=== PATIENT | female | born 1955 | race Caucasian/White ===

== ENCOUNTER 2018-03-08 04:30 | Inpatient (IN) | payer MEDICARE, OTHER ==
[2018-03-08] MEDS ORDERED: SODIUM CHLORIDE 0.9% 1,000 ML IV STA (04:34)
[2018-03-08] MEDS ORDERED: NALOXONE 0.4 MG/ML 1 ML VIAL IV STA (04:34)
[2018-03-08 04:51] LABS: Basophils # (A) 0.1 k/uL (0-0.2); Basophils % (A) 2 %; Eosinophils # (A) 0.1 k/uL (0-0.7); Eosinophils % (A) 2 %; HGB 10.9 gm/dL (11.4-16.0); Lymphocytes # (A) 1.7 k/uL (1.0-4.8); Lymphocytes % (A) 43 %; MCH 34.1 pg (25.0-35.0); MCHC 33.1 g/dL (31.0-37.0); Macrocytosis Slight; Mean Platelet Volume 7.1; Monocytes # (A) 0.3 k/uL (0-1.0); Monocytes % (A) 7 %; Neutrophils # (A) 1.7 k/uL (1.3-7.7); Neutrophils % (A) 43 %; Platelet Count 278 k/uL (150-450); RBC 3.21 m/uL (3.80-5.40); RDW 12.9 % (11.5-15.5); WBC 3.9 k/uL (3.8-10.6)
[2018-03-08] MEDS ORDERED: LORazepam 2 MG/ML INJ IV STA (04:51)
[2018-03-08 04:58] LABS: ALT 42 U/L (9-52); AST 27 U/L (14-36); Alkaline Phosphatase 50 U/L (38-126); Anion Gap 4 mmol/L; Blood Urea Nitrogen 20 mg/dL (7-17); Calcium 8.2 mg/dL (8.4-10.2); Carbon Dioxide 31 mmol/L (22-30); Chloride 98 mmol/L (98-107); Glucose 92 mg/dL (74-99); Magnesium 1.9 mg/dL (1.6-2.3); Potassium 4.3 mmol/L (3.5-5.1); Sodium 133 mmol/L (137-145); Total Bilirubin 0.2 mg/dL (0.2-1.3); Total Protein 5.4 g/dL (6.3-8.2)
[2018-03-08 05:00] LABS: Partial Thromboplastin Time 24.3 sec (22.0-30.0); Prothrombin Time 10.1 sec (9.0-12.0)
[2018-03-08 05:06] LABS: Creatine Kinase 61 U/L (30-135)
[2018-03-08] MEDS ORDERED: SODIUM CHLORIDE 0.9% 500 ML IV ONE (05:18)
[2018-03-08 05:19] LABS: Creatine Kinase MB 0.9 ng/mL (0.0-2.4); Troponin I <0.012 ng/mL (0.000-0.034)
--- NOTE | 2018-03-08 06:05 | CT ---
EXAM: CT Head Without Intravenous Contrast CLINICAL HISTORY: Reason: Pain TECHNIQUE: Axial computed tomography images of the head/brain without intravenous contrast. CTDI is 60.3 mGy and DLP is 1054.2 mGy-cm. This CT exam was performed using one or more of the following dose reduction techniques: automated exposure control, adjustment of the mA and/or kV according to patient size, and/or use of iterative reconstruction technique. COMPARISON: No prior studies FINDINGS: No intracranial hemorrhage, abnormal intra- or extra-axial collections or parenchymal lesions are seen. There are involutional changes with prominence of the sulci, basal cisterns and ventricles. Scattered white matter hypoattenuations are present, likely from small vessel disease. The bejarano-white differentiation is preserved. No evidence of mass effect, midline shift, or edema. The osseous structures are unremarkable. The visualized portions of the paranasal sinuses are clear. IMPRESSION: 1. No acute intracranial process. 2. Involutional changes with small vessel disease.
--- NOTE | 2018-03-08 06:07 | XR ---
EXAM: XR Chest, 1 View CLINICAL HISTORY: Its. reason XR Reason: Chest Pain TECHNIQUE: Frontal view of the chest. COMPARISON: No relevant prior studies available. FINDINGS: Bibasilar infiltrates greater on the right. Prominence of pulmonary vascular markings mild prominence of cardiac silhouette. IMPRESSION: Bibasilar infiltrates greater on the right. Although this could represent pulmonary venous congestion the possibility of infectious pneumonic infiltrates cannot be excluded
[2018-03-08] MEDS ORDERED: LEVOFLOXACIN 500MG-D5W PMX 500 MG in DEXTROSE/WATER 1 100ML.BAG IVPB STA (06:27)
--- NOTE | 2018-03-08 06:54 | ED ---
Overdose HPI - General Chief Complaint: Overdose Stated Complaint: overdose Time Seen by Provider: 03/08/18 04:33 Source: EMS Mode of arrival: EMS Limitations: no limitations - History of Present Illness Initial Comments: 62 years old for him female from mom her [facility] accidentally got some of the patient's medication that included Neurontin 400 mg morphine 60 mg ER Cymbalta 60 and cervical 50 mg that happened around 7:45 PM yesterday and initially she was hard to arouse but in ER. When she came in during moving from one bed to another bed he woke up she follow the commands. Review of system was inconclusive because she will in and out she will wake up and she'll fall sleep. - Related Data Allergies Allergy/AdvReac Type Severity Reaction Status Date / Time No Known Allergies Allergy Verified 03/08/18 04:49 Review of Systems ROS Statement: Those systems with pertinent positive or pertinent negative responses have been documented in the HPI. ROS Other: All systems not noted in ROS Statement are negative. Past Medical History Past Medical History: Unable to Obtain History of Any Multi-Drug Resistant Organisms: Unobtainable Past Surgical History: Unable to Obtain Past Psychological History: Unable to Obtain Smoking Status: Unknown if ever smoked Past Alcohol Use History: Unable to Obtain Past Drug Use History: Unable to Obtain General Exam Limitations: no limitations Course Vital Signs 03/08/18 03/08/18 03/08/18 04:32 04:51 04:57 Temperature 95.7 F L Pulse Rate 68 63 Respiratory 12 14 14 Rate Blood Pressure 159/69 120/85 O2 Sat by Pulse 95 97 Oximetry 03/08/18 03/08/18 03/08/18 05:19 05:36 06:06 Temperature Pulse Rate 57 L 56 L 58 L Respiratory 12 12 12 Rate Blood Pressure 92/50 143/74 100/56 O2 Sat by Pulse 92 L 96 93 L Oximetry EKG is normal sinus rhythm with PVCs ventricular rate is 62 MO interval is 134 QRS duration is 78 Qt/QTc is 448/454 review of this EKG does not reveal any clear STEMI - Reevaluation(s) Reevaluation #1: His blood gases showed pH 724 bicarb is 32.6 CBC is unremarkable so his INR troponin is within normal range so is the compress metabolic panel chest x-ray there is a question of bilateral pneumonia and head CT ruled out any subdural or epidural bleed 03/08/18 06:51 Medical Decision Making - Lab Data Result diagrams: 03/08/18 04:38 03/08/18 04:38 Lab Results 03/08/18 03/08/18 03/08/18 Range/Units 04:38 04:38 04:38 WBC 3.9 (3.8-10.6) k/uL RBC 3.21 L (3.80-5.40) m/uL Hgb 10.9 L (11.4-16.0) gm/dL Hct 33.0 L (34.0-46.0) % MCV 103.0 H (80.0-100.0) fL MCH 34.1 (25.0-35.0) pg MCHC 33.1 (31.0-37.0) g/dL RDW 12.9 (11.5-15.5) % Plt Count 278 (150-450) k/uL Neutrophils % 43 % Lymphocytes % 43 % Monocytes % 7 % Eosinophils % 2 % Basophils % 2 % Neutrophils # 1.7 (1.3-7.7) k/uL Lymphocytes # 1.7 (1.0-4.8) k/uL Monocytes # 0.3 (0-1.0) k/uL Eosinophils # 0.1 (0-0.7) k/uL Basophils # 0.1 (0-0.2) k/uL Macrocytosis Slight PT (9.0-12.0) sec INR (<1.2) APTT (22.0-30.0) sec Sodium 133 L (137-145) mmol/L Potassium 4.3 (3.5-5.1) mmol/L Chloride 98 (98-107) mmol/L Carbon Dioxide 31 H (22-30) mmol/L Anion Gap 4 mmol/L BUN 20 H (7-17) mg/dL Creatinine 0.70 (0.52-1.04) mg/dL Est GFR (CKD-EPI)AfAm >90 (>60 ml/min/1.73 sqM) Est GFR (CKD-EPI)NonAf >90 (>60 ml/min/1.73 sqM) Glucose 92 (74-99) mg/dL Calcium 8.2 L (8.4-10.2) mg/dL Magnesium 1.9 (1.6-2.3) mg/dL Total Bilirubin 0.2 (0.2-1.3) mg/dL AST 27 (14-36) U/L ALT 42 (9-52) U/L Alkaline Phosphatase 50 (38-126) U/L Total Creatine Kinase 61 (30-135) U/L CK-MB (CK-2) 0.9 (0.0-2.4) ng/mL CK-MB (CK-2) Rel Index 1.5 Troponin I <0.012 (0.000-0.034) ng/mL Total Protein 5.4 L (6.3-8.2) g/dL Albumin 3.0 L (3.5-5.0) g/dL 03/08/18 Range/Units 04:38 WBC (3.8-10.6) k/uL RBC (3.80-5.40) m/uL Hgb (11.4-16.0) gm/dL Hct (34.0-46.0) % MCV (80.0-100.0) fL MCH (25.0-35.0) pg MCHC (31.0-37.0) g/dL RDW (11.5-15.5) % Plt Count (150-450) k/uL Neutrophils % % Lymphocytes % % Monocytes % % Eosinophils % % Basophils % % Neutrophils # (1.3-7.7) k/uL Lymphocytes # (1.0-4.8) k/uL Monocytes # (0-1.0) k/uL Eosinophils # (0-0.7) k/uL Basophils # (0-0.2) k/uL Macrocytosis PT 10.1 (9.0-12.0) sec INR 1.0 (<1.2) APTT 24.3 (22.0-30.0) sec Sodium (137-145) mmol/L Potassium (3.5-5.1) mmol/L Chloride (98-107) mmol/L Carbon Dioxide (22-30) mmol/L Anion Gap mmol/L BUN (7-17) mg/dL Creatinine (0.52-1.04) mg/dL Est GFR (CKD-EPI)AfAm (>60 ml/min/1.73 sqM) Est GFR (CKD-EPI)NonAf (>60 ml/min/1.73 sqM) Glucose (74-99) mg/dL Calcium (8.4-10.2) mg/dL Magnesium (1.6-2.3) mg/dL Total Bilirubin (0.2-1.3) mg/dL AST (14-36) U/L ALT (9-52) U/L Alkaline Phosphatase (38-126) U/L Total Creatine Kinase (30-135) U/L CK-MB (CK-2) (0.0-2.4) ng/mL CK-MB (CK-2) Rel Index Troponin I (0.000-0.034) ng/mL Total Protein (6.3-8.2) g/dL Albumin (3.5-5.0) g/dL Critical Care Time Total Critical Care Time: 45 Critical Care Time: On arrival he was quite sleepy venous blood gases were within normal range she didn't require any respiratory support and initially she had a bradycardia but this soon after heart rate was above 60 she had morphine 60 mg ER Cymbalta 60 mg by mouth Seroquel 50 mg by mouth and Neurontin 4 mg this was ACCIDENTAL overdose she be admitted for observation with some IV antibiotics and IV fluids and chest x-ray showed some pneumonia. Nursing noticed a seizure which lasted about 15 seconds to a head CT was done Disposition Clinical Impression: Drug overdose, Change in mental status, Conversion disorder with attacks or seizures, acute episode, Pneumonia Disposition: ADMITTED IP TO THIS [facility] Condition: Good Referrals: None,Stated [Primary Care Provider] - 1-2 days
[2018-03-08] MEDS ORDERED: ACETAMINOPHEN TAB 325 MG TAB PO PRN (06:57)
[2018-03-08] MEDS ORDERED: NALOXONE 0.4 MG/ML 1 ML VIAL IV PRN (06:57)
[2018-03-08] MEDS ORDERED: DEXTROSE 5%-0.9% NACL 1,000 ML IV SCH (07:15)
[2018-03-08 09:08] LABS: Glucose,Whole Blood 94 mg/dL (75-99)
--- NOTE | 2018-03-08 17:21 | P.CNNES ---
History of Present Illness Consult date: 03/08/18 Reason for Consult: Patient with accidental drug overdose and seizure. History of Present Illness: This patient is a 62-year-old right-handed white female who was brought into the emergency room early this morning for evaluation of lethargy and possible drug overdose. Patient was examined and seen today in the emergency room in room #20 at [facility] as she was still awaiting a bed assignment. Patient was seen in the emergency room on 03/08/2018 at 4:30 PM. History was obtained from the patient's sister who was at bedside in the emergency room. Patient is awaiting bed assignment and was evaluated today in the emergency room at [facility] at about 4:30 PM. According to the sister she received a phone call yesterday evening at about 9 PM and was informed that the patient was given accidentally several medications. She was told that they were going to watch her closely and if necessary would transfer her to the hospital for further evaluation. The patient is residing at the [facility] since October 2017. According to the sister she attends [employer] days a week. She has been very functional even though she has a history of Down syndrome. This morning at 5 AM the sister received another call stating that the patient seemed to be more lethargic. They were calling EMS and she was going to go to the emergency room for further evaluation. According to her sister she had been doing quite well at the [facility] even though she has a history of underlying Down syndrome. She has been at the [facility] since October 2017 and apparently takes part in several activities. She is able to ambulate without the use of a walker at the home. Apparently yesterday evening the patient was accidentally given several medications including Neurontin, morphine, Cymbalta, and Seroquel which are not her usual medications. According to the sister the patient only takes a water pill and a thyroid medication as her only important medications at the [facility]. The patient apparently was evaluated this morning and she appeared to be more drowsy at the [facility]. For this reason EMS was called and the patient was transported to the emergency room at [facility] for further evaluation. Patient was seen in the emergency room by Dr. Garcia. He determined that she had a drug overdose. She was immediately given Narcan. It was determined that the patient had a drug overdose was likely accidental and for this reason she was to be admitted to the hospital for further evaluation. Dr. Garcia did send her for a computed tomography scan of the brain which did come back with no acute intracranial process. Small vessel ischemic changes were noted. The patient was given Narcan in the emergency room due to the drug overdose. Her sister had checked on early this morning and she was still somewhat obtunded. She was not recognizing her and she was hard to arouse early this morning. The patient was reevaluated this afternoon at about 4:30 PM and according to the sister she now seems to be doing much better and is more her normal baseline level of function given her history of the Down syndrome. We were able to evaluate the patient this afternoon at 4:30 PM in the emergency room. She is able to follow simple commands and does seem to recognize her sister who is at bedside. Apparently soon after coming to the emergency room the patient had a possible witnessed seizure by the nurse that lasted 15 seconds. She has had no further recurrence of any seizure activity since admission. According to the sister she has no previous history of seizures. The sister feels the patient has made progress this afternoon in terms of her mental status and is slowly coming around. She is going to be admitted to the hospital once her bed becomes available. We have reviewed the CAT scan results today with the sister in detail. The patient underwent a chest x-ray which reveals possibility of pneumonia. She was started on antibiotics and will be awaiting admission to the hospital for close monitoring. We will obtain a routine EEG for further evaluation as well. Patient is awaiting room assignment and will be admitted for close monitoring over the next 24-48 hours. Neurology is now been consulted for further evaluation and recommendations. Review of Systems Constitutional: Reports malaise, Denies chills, Denies fever Eyes: denies blurred vision, denies pain Ears, nose, mouth and throat: Denies headache, Denies sore throat Cardiovascular: Denies chest pain, Denies shortness of breath Respiratory: Denies cough Gastrointestinal: Denies abdominal pain, Denies diarrhea, Denies nausea, Denies vomiting Genitourinary: Denies dysuria, Denies hematuria Musculoskeletal: Denies myalgias Integumentary: Denies pruritus, Denies rash Neurological: Reports change in mentation, Reports confusion, Reports convulsions, Reports seizures, Denies numbness, Denies weakness Psychiatric: Reports confusion, Reports disorientation, Denies anxiety, Denies depression Endocrine: Denies fatigue, Denies weight change Past Medical History Past Medical History: Unable to Obtain History of Any Multi-Drug Resistant Organisms: Unobtainable Past Surgical History: Unable to Obtain Past Psychological History: Unable to Obtain Smoking Status: Unknown if ever smoked Past Alcohol Use History: Unable to Obtain Past Drug Use History: Unable to Obtain Medications and Allergies Home Medications Medication Instructions Recorded Confirmed Type Acetaminophen Tab [Tylenol Tab] 325 mg PO Q6H PRN 03/08/18 03/08/18 History Cholecalciferol (Vitamin D3) 2,000 unit PO DAILY 03/08/18 03/08/18 History [Vitamin D3] Ciclopirox Olamine Cream [Ciclodan] 1 applic TOPICAL BID 03/08/18 03/08/18 History DULoxetine HCL [Cymbalta] 60 mg PO HS 03/08/18 03/08/18 History Gabapentin [Neurontin] 400 mg PO HS 03/08/18 03/08/18 History Hydrochlorothiazide [Hydrodiuril] 25 mg PO DAILY 03/08/18 03/08/18 History Levothyroxine Sodium [Synthroid] 137 mcg PO DAILY 03/08/18 03/08/18 History Morphine Sulfate ER [Ms Contin] 60 mg PO HS 03/08/18 03/08/18 History Multivitamins, Thera [Multivitamin 1 tab PO DAILY 03/08/18 03/08/18 History (formulary)] QUEtiapine [SEROquel] 50 mg PO HS 03/08/18 03/08/18 History Allergies Allergy/AdvReac Type Severity Reaction Status Date / Time No Known Allergies Allergy Verified 03/08/18 11:12 Physical Examination - Vital Signs Vital Signs: Vital Signs Temp Pulse Pulse Resp BP Pulse Ox 03/08/18 14:49 98.1 F 74 18 104/58 03/08/18 12:59 18 L 03/08/18 12:57 98.3 F 72 18 99/48 94 L 03/08/18 11:46 98.3 F 69 18 97/52 95 03/08/18 08:58 97.6 F 67 18 93/53 95 03/08/18 07:39 96.9 F L 69 18 95/51 94 L 07/21/18 06:54 95.6 F L 62 12 145/67 97 03/08/18 06:06 58 L 12 100/56 93 L 03/08/18 05:36 56 L 12 143/74 96 03/08/18 05:19 57 L 12 92/50 92 L 03/08/18 04:57 63 14 120/85 97 03/08/18 04:51 14 03/08/18 04:32 95.7 F L 68 12 159/69 95 Intake and Output 03/08/18 03/08/18 03/08/18 06:59 14:59 22:59 Output Total 350 Balance -350 Output: Urine 350 Uretheral (Alonso) 350 Other: Weight 63.276 kg - Constitutional General appearance: average body habitus, cooperative - EENT EENT: PERRL, mucous membranes moist - Respiratory Respiratory: lungs clear, normal breath sounds - Cardiovascular Cardiovascular: regular rate, normal S1, normal S2 Extremities: no peripheral edema bilaterally - Gastrointestinal Gastrointestinal: normoactive bowel sounds - Integumentary Integumentary: normal - Neurologic Cranial nerve examination: PERRL, EOMI, face symmetric, tongue midline, intact gag reflex, intact corneal reflex, normal palatal elevation Speech examination: motor aphasia Sensorimotor examination: intact Motor examination - right side: 4/5: biceps, triceps, wrist flexion, wrist extension, cyber analyst, hip flexors, knee extensors, dorsiflexion, toe extension (EHL) , plantarflexion Motor examination - left side: 4/5: biceps, triceps, wrist flexion, wrist extension, cyber analyst, hip flexors, knee extensors, dorsiflexion, toe extension (EHL) , plantarflexion Detailed sensory examination: intact Reflex and gait examination: other (Patient gait could not be assessed at this time however she ambulates at the [facility] without the use of a walker.) Reflexes: 1+: ankle, bicep, knee, tricep - Musculoskeletal Musculoskeletal: no pain - Psychiatric Psychiatric: mood/affect appropriate, cooperative Results - Laboratory Findings CBC and BMP: 03/08/18 04:38 03/08/18 04:38 Abnormal Lab Findings: Abnormal Labs 03/08/18 03/08/18 04:38 04:38 RBC 3.21 L Hgb 10.9 L Hct 33.0 L MCV 103.0 H Sodium 133 L Carbon Dioxide 31 H BUN 20 H Calcium 8.2 L Total Protein 5.4 L Albumin 3.0 L Assessment and Plan (1) History of Down syndrome Current Visit: Yes Status: Acute Code(s): Q90.9 - DOWN SYNDROME, UNSPECIFIED SNOMED Code(s): 485603631 (2) Drug overdose Current Visit: Yes Status: Acute Code(s): T50.901A - POISONING BY UNSP DRUG/ MEDS/BIOL SUBST, ACCIDENTAL, INIT SNOMED Code(s): 49523264 (3) Acute metabolic encephalopathy Current Visit: Yes Status: Acute Code(s): G93.41 - METABOLIC ENCEPHALOPATHY SNOMED Code(s): 36913783 (4) New onset seizure Current Visit: Yes Status: Acute Code(s): R56.9 - UNSPECIFIED CONVULSIONS SNOMED Code(s): 06830784 (5) Pneumonia Current Visit: Yes Status: Acute Code(s): J18.9 - PNEUMONIA, UNSPECIFIED ORGANISM SNOMED Code(s): 393095393 Plan: This patient is a 62-year-old right-handed white female who has a known history of Down syndrome. She [facility] a [facility] where she has been very well adjusted there since October 2017. She is currently staying at the [facility] where she has been since October 2017. She attends the [employer] program 3 days a week. She ambulates at the home without the use of a walker. Her sister who provided the medical history today in the emergency room states she was contacted yesterday evening by the nursing staff at the [facility] and was told that the patient was accidentally given wrong medications. They were going to watch her closely and if any changes occurred they would send her to the emergency room. The sister received another call this morning at 5 AM stating that the patient was somewhat obtunded and for this reason was going to be sent by EMS to the emergency room this morning. He shouldn't was transported to the ER where she was evaluated at [facility] by a Dr. Garcia. It was determined that the patient had accidental drug overdose and she was given Narcan. She was sent for a computed tomography scan of the brain and the results of which are noted above. CAT scan of the brain failed to reveal any acute changes. Patient continued to remain somewhat obtunded in the ER until late this afternoon. Her assessment at 4:30 PM in the emergency room reveals her to be much more alert and awake as compared to initial presentation this morning. Her sister who is her power of family law attorney and guardian was available at bedside in the ER this afternoon also notes that she is shown significant improvement since initial presentation. The patient is being admitted to hospital and is going to be treated for possible pneumonia. She has been started on IV antibiotics. She had a 15 second seizure event possibly related to drug overdose when she presented to the ER. We have recommended a routine EEG to be done for further evaluation. Her sister who is at her bedside in the ER was updated on all of our neurological findings and test results thus far. She does feel the patient is making improvement this afternoon and we will continue to follow her neurologically during this admission. Patient has no previous history of seizures or head injury. We will continue to follow her closely when she is admitted to [facility] and receives her bed assignment. Once again this case was discussed at length with the patient's sister and all of her questions were answered. She is aware of our recommendations and our current neurological assessment. We will continue to follow her progress closely during this admission. Time with Patient: Greater than 30
--- NOTE | 2018-03-08 19:15 | P.HPIM ---
History of Present Illness 62 years old for him female from mom her long-term accidentally got some of the patient's medication that included Neurontin 400 mg morphine 60 mg ER Cymbalta 60 and cervical 50 mg that happened around 7:45 PM yesterday and initially she was hard to arouse but in ER. When she came in during moving from one bed to another bed he woke up she follow the commands. Review of system was inconclusive because she will in and out she will wake up and she'll fall sleep. Patient had a seizure apparently which no weakness to by the ER staff because of which are within obtain EEG. Patient is hyponatremic as well can you with IV fluids we'll recheck it tomorrow. Patient appears to have aspirated because of her poor dental hygiene start her on antibiotics in the form of Augmentin. Review of Systems Unable to obtain as patient is mostly nonverbal because of Down syndrome Past Medical History Past Medical History: Unable to Obtain History of Any Multi-Drug Resistant Organisms: Unobtainable Past Surgical History: Unable to Obtain Past Psychological History: Unable to Obtain Smoking Status: Unknown if ever smoked Past Alcohol Use History: Unable to Obtain Past Drug Use History: Unable to Obtain Medications and Allergies Home Medications Medication Instructions Recorded Confirmed Type Acetaminophen Tab [Tylenol Tab] 325 mg PO Q6H PRN 03/08/18 03/08/18 History Cholecalciferol (Vitamin D3) 2,000 unit PO DAILY 03/08/18 03/08/18 History [Vitamin D3] Ciclopirox Olamine Cream [Ciclodan] 1 applic TOPICAL BID 03/08/18 03/08/18 History DULoxetine HCL [Cymbalta] 60 mg PO HS 03/08/18 03/08/18 History Gabapentin [Neurontin] 400 mg PO HS 03/08/18 03/08/18 History Hydrochlorothiazide [Hydrodiuril] 25 mg PO DAILY 03/08/18 03/08/18 History Levothyroxine Sodium [Synthroid] 137 mcg PO DAILY 03/08/18 03/08/18 History Morphine Sulfate ER [Ms Contin] 60 mg PO HS 03/08/18 03/08/18 History Multivitamins, Thera [Multivitamin 1 tab PO DAILY 03/08/18 03/08/18 History (formulary)] QUEtiapine [SEROquel] 50 mg PO HS 03/08/18 03/08/18 History Allergies Allergy/AdvReac Type Severity Reaction Status Date / Time No Known Allergies Allergy Verified 03/08/18 11:12 Physical Exam Vitals: Vital Signs Temp Pulse Pulse Resp BP Pulse Ox 03/08/18 17:25 69 18 112/69 94 L 03/08/18 14:49 98.1 F 74 18 104/58 03/08/18 12:59 18 L 03/08/18 12:57 98.3 F 72 18 99/48 94 L 03/08/18 11:46 98.3 F 69 18 97/52 95 03/08/18 08:58 97.6 F 67 18 93/53 95 03/08/18 07:39 96.9 F L 69 18 95/51 94 L 03/08/18 06:54 95.6 F L 62 12 145/67 97 03/08/18 06:06 58 L 12 100/56 93 L 03/08/18 05:36 56 L 12 143/74 96 03/08/18 05:19 57 L 12 92/50 92 L 03/08/18 04:57 63 14 120/85 97 03/08/18 04:51 14 03/08/18 04:32 95.7 F L 68 12 159/69 95 Intake and Output 03/08/18 03/08/18 03/08/18 06:59 14:59 22:59 Output Total 350 Balance -350 Output: Urine 350 Uretheral (Alonso) 350 Other: Weight 63.276 kg PHYSICAL EXAMINATION: GENERAL: The patient is alert nonverbal very pleasant HEENT: Pupils are round and equally reacting to light. EOMI. No scleral icterus. No conjunctival pallor. Normocephalic, atraumatic. No pharyngeal erythema. No thyromegaly. CARDIOVASCULAR: S1 and S2 present. No murmurs, rubs, or gallops. PULMONARY: Chest is clear to auscultation, no wheezing or crackles. ABDOMEN: Soft, nontender, nondistended, normoactive bowel sounds. No palpable organomegaly. MUSCULOSKELETAL: No joint swelling or deformity. EXTREMITIES: No cyanosis, clubbing, or pedal edema. NEUROLOGICAL: Gross neurological examination did not reveal any focal deficits. SKIN: No rashes. Results CBC & Chem 7: 03/08/18 04:38 07/21/18 04:38 Labs: Abnormal Lab Results - Last 24 Hours (Table) 03/08/18 03/08/18 Range/Units 04:38 04:38 RBC 3.21 L (3.80-5.40) m/uL Hgb 10.9 L (11.4-16.0) gm/dL Hct 33.0 L (34.0-46.0) % MCV 103.0 H (80.0-100.0) fL Sodium 133 L (137-145) mmol/L Carbon Dioxide 31 H (22-30) mmol/L BUN 20 H (7-17) mg/dL Calcium 8.2 L (8.4-10.2) mg/dL Total Protein 5.4 L (6.3-8.2) g/dL Albumin 3.0 L (3.5-5.0) g/dL Microbiology - Last 24 Hours (Table) 03/08/18 06:55 Urine Culture - Preliminary Urine,Catheterized Assessment and Plan Plan: -Accidental overdose on multiple medications: Patient is clinically doing well will not need any further workup patient is awake at her baseline. -Possible seizure: Neurology evaluated the patient EEG tomorrow. -Hypothyroidism continue with levothyroxine -Possible aspiration secondary to her altered mental status from accidental overdose patient will be started on Augmentin -Hyponatremia: Hypovolemic hyponatremia IV fluids as mentioned will recheck basic metabolic profile -Toxic encephalopathy: Secondary to overdose on medications as mentioned above
[2018-03-08] MEDS ORDERED: LORazepam 2 MG/ML INJ IV PRN (22:43)
[2018-03-08] MEDS: AMOXIC-POT CLAV 875-125MG 1 EACH TAB PO SCH (22:52)
[2018-03-08] MEDS: SODIUM CHLORIDE 0.9% 1,000 ML IV SCH (22:54)
[2018-03-09 00:53] VITALS: BMI 24.0
[2018-03-09] MEDS ORDERED: ONDANSETRON 4 MG/2 ML VIAL IVP PRN (01:18)
[2018-03-09] MEDS: SODIUM CHLORIDE 0.9% 1,000 ML IV SCH ×2 (05:24→16:48)
[2018-03-09] MEDS: LEVOTHYROXINE 137 MCG TAB PO SCH (06:53)
--- NOTE | 2018-03-09 06:53 | XR ---
EXAMINATION TYPE: XR chest 2V DATE OF EXAM: 03/09/2018 HISTORY: Follow-up on pneumonia. REFERENCE: Previous study dated 03/08/2018. FINDINGS: There is a worsening right lower lobe infiltrate. There is a developing left lower lobe inf iltrate. The heart is not enlarged. Pleural spaces are clear. IMPRESSION: WORSENING BILATERAL INFILTRATES.
[2018-03-09] MEDS: AMOXIC-POT CLAV 875-125MG 1 EACH TAB PO SCH ×2 (07:39→22:04)
[2018-03-09] MEDS ORDERED: HYDROCHLOROTHIAZIDE 25 MG TAB PO SCH (09:00)
[2018-03-09 09:01] LABS: HCT 34.2 % (34.0-46.0); HGB 11.8 gm/dL (11.4-16.0); MCH 35.2 pg (25.0-35.0); MCHC 34.5 g/dL (31.0-37.0); MCV 101.9 fL (80.0-100.0); Macrocytosis Slight; Mean Platelet Volume 7.1; Platelet Count 223 k/uL (150-450); RBC 3.35 m/uL (3.80-5.40); RDW 12.6 % (11.5-15.5); WBC 5.9 k/uL (3.8-10.6)
[2018-03-09 09:31] LABS: Anion Gap 8 mmol/L; Blood Urea Nitrogen 14 mg/dL (7-17); Calcium 8.5 mg/dL (8.4-10.2); Carbon Dioxide 26 mmol/L (22-30); Chloride 99 mmol/L (98-107); Glucose 101 mg/dL (74-99); Potassium 4.3 mmol/L (3.5-5.1); Sodium 133 mmol/L (137-145)
--- NOTE | 2018-03-09 12:17 | P.PN ---
Subjective Patient came in with altered mental status secondary to accident low-dose on opiates mental status improved patient had question of seizure any elevating EKG. I discussed her head were thiazide but patient ended up receiving it unfortunately because of hyponatremia I'm discontinued and it started continue IV fluids repeat basic metabolic profile tomorrow and if eeg is negative patient will be discharged back to subacute rehab without any antiseizure medications. Objective - Vital Signs Vital signs: Vital Signs Temp 98.8 F 03/09/18 06:16 Pulse 75 03/09/18 06:16 Resp 16 03/09/18 06:16 BP 110/55 03/09/18 06:16 Pulse Ox 93 L 03/09/18 07:40 Intake & Output 03/08/18 03/09/18 03/09/18 18:59 06:59 18:59 Intake Total 600 Output Total 350 1025 Balance -350 -1025 600 Weight 63.5 kg Intake: Oral 600 Output: Urine 350 1025 Uretheral (Alonso) 350 Other: Voiding Method Indwelling Catheter # Voids 1 - Exam PHYSICAL EXAMINATION: GENERAL: The patient is alert nonverbal very pleasant HEENT: Pupils are round and equally reacting to light. EOMI. No scleral icterus. No conjunctival pallor. Normocephalic, atraumatic. No pharyngeal erythema. No thyromegaly. CARDIOVASCULAR: S1 and S2 present. No murmurs, rubs, or gallops. PULMONARY: Chest is clear to auscultation, no wheezing or crackles. ABDOMEN: Soft, nontender, nondistended, normoactive bowel sounds. No palpable organomegaly. MUSCULOSKELETAL: No joint swelling or deformity. EXTREMITIES: No cyanosis, clubbing, or pedal edema. NEUROLOGICAL: Gross neurological examination did not reveal any focal deficits. SKIN: No rashes. - Labs CBC & Chem 7: 03/09/18 08:14 03/09/18 08:14 Labs: Abnormal Lab Results - Last 24 Hours (Table) 03/09/18 03/09/18 Range/Units 08:14 08:14 RBC 3.35 L (3.80-5.40) m/uL MCV 101.9 H (80.0-100.0) fL MCH 35.2 H (25.0-35.0) pg Sodium 133 L (137-145) mmol/L Creatinine 0.50 L (0.52-1.04) mg/dL Glucose 101 H (74-99) mg/dL Microbiology - Last 24 Hours (Table) 03/08/18 07:03 Blood Culture - Preliminary Blood No Growth after 24 hours 03/08/18 06:55 Urine Culture - Preliminary Urine,Catheterized Assessment and Plan Plan: -Accidental overdose on multiple medications: Patient is clinically doing well will not need any further workup patient is awake at her baseline. -Possible seizure: Neurology evaluated the patient EEG tomorrow. -Hypothyroidism continue with levothyroxine -Possible aspiration secondary to her altered mental status from accidental overdose patient will be started on Augmentin -Hyponatremia: Hypovolemic hyponatremia IV fluids as mentioned will recheck basic metabolic profile -Toxic encephalopathy: Secondary to overdose on medications as mentioned above
--- NOTE | 2018-03-09 13:18 | P.PN ---
Subjective Progress Note Date: 03/09/18 This patient is a 62-year-old right-handed white female with a known history of Down syndrome. She was admitted yesterday to the emergency room with accidental drug overdose. She has slowly shown significant improvement since yesterday. Her computed tomography scan of the brain failed to reveal any acute changes. She did have a very short seizure like event in the ER that lasted 15 seconds. We have recommended routine EEG to be done for her and if this is normal she may be considered for discharge back to her alf. Her EEG will be done only tomorrow morning. We will follow-up with this and hopefully she'll be able to return to her alf tomorrow for further management. She does appear to be much more awake and alert and her usual self as per the nursing staff. Sister was in earlier this morning and apparently told nursing staff she is at her baseline level of function. She has had no further spells to suggest seizure activity since admission to hospital. We will continue close neurological follow-up for the patient during this admission. Objective - Vital Signs Vital signs: Vital Signs Temp 98.8 F 03/09/18 06:16 Pulse 75 03/09/18 06:16 Resp 16 03/09/18 06:16 BP 110/55 03/09/18 06:16 Pulse Ox 93 L 03/09/18 07:40 Intake & Output 03/08/18 03/09/18 03/09/18 18:59 06:59 18:59 Output Total 350 1025 Balance -350 -1025 Weight 63.5 kg Output: Urine 350 1025 Uretheral (Alonso) 350 Other: Voiding Method Indwelling Catheter - Exam Physical examination: PHYSICAL EXAMINATION: Patient is resting comfortably in bed. VITAL SIGNS: Blood pressure is [102/54]. Heart rate is [64]. Respiration is [14] . Temperature is [97.9]. HEENT: Head is atraumatic, neck is supple, there were no carotid bruits. CHEST: Lungs are clear to auscultation and percussion. CARDIAC: S1, S2 normal rate and rhythm. There is no murmur. ABDOMEN: Soft and nontender. Bowel sounds are present. EXTREMITIES: There is no pedal edema. Peripheral pulses are present. Neurological examination: Her neurological examination is nonfocal today. She does have history of Down syndrome and has mild mental impairment but is at baseline level of function. - Labs CBC & Chem 7: 03/09/18 08:14 03/09/18 08:14 Labs: Abnormal Lab Results - Last 24 Hours (Table) 03/09/18 Range/Units 08:14 RBC 3.35 L (3.80-5.40) m/uL MCV 101.9 H (80.0-100.0) fL MCH 35.2 H (25.0-35.0) pg Microbiology - Last 24 Hours (Table) 03/08/18 06:55 Urine Culture - Preliminary Urine,Catheterized Assessment and Plan (1) History of Down syndrome Current Visit: Yes Status: Acute Code(s): Q90.9 - DOWN SYNDROME, UNSPECIFIED SNOMED Code(s): 480844276 (2) Drug overdose Current Visit: Yes Status: Acute Code(s): T50.901A - POISONING BY UNSP DRUG/ MEDS/BIOL SUBST, ACCIDENTAL, INIT SNOMED Code(s): 18692320 (3) Acute metabolic encephalopathy Current Visit: Yes Status: Acute Code(s): G93.41 - METABOLIC ENCEPHALOPATHY SNOMED Code(s): 73278115 (4) New onset seizure Current Visit: Yes Status: Acute Code(s): R56.9 - UNSPECIFIED CONVULSIONS SNOMED Code(s): 11714760 (5) Pneumonia Current Visit: Yes Status: Acute Code(s): J18.9 - PNEUMONIA, UNSPECIFIED ORGANISM SNOMED Code(s): 585371045 Plan: This patient is a 62-year-old female who was admitted to hospital yesterday with accidental drug overdose. She has a history of Down syndrome and resides at a alf. She underwent a computed tomography scan of the brain yesterday which was reviewed. She was subsequent admitted to hospital for close monitoring. She had a 15 second seizure in the emergency room which is felt to be likely secondary to the drug overdose. She has had no further seizure activity since admission to hospital. She is scheduled to undergo EEG tomorrow and if this is negative for any epileptiform discharges she'll be considered for discharge back to the alf. She seems to be doing much better today and is her normal level of baseline given her history of Down syndrome. We will continue close neurological follow-up for the patient and will give further recommendations upon completion of her EEG tomorrow. Her overall prognosis at this time remains guarded.
[2018-03-10] MEDS: SODIUM CHLORIDE 0.9% 1,000 ML IV SCH ×2 (03:58→12:38)
[2018-03-10] MEDS: LEVOTHYROXINE 137 MCG TAB PO SCH (06:12)
[2018-03-10 06:22] VITALS: RESP 16
[2018-03-10 06:47] LABS: Glucose,Whole Blood 97 mg/dL (75-99)
[2018-03-10 08:15] LABS: Anion Gap 6 mmol/L; Blood Urea Nitrogen 10 mg/dL (7-17); Calcium 8.4 mg/dL (8.4-10.2); Carbon Dioxide 29 mmol/L (22-30); Chloride 96 mmol/L (98-107); Glucose 106 mg/dL (74-99); Sodium 131 mmol/L (137-145)
[2018-03-10] MEDS: AMOXIC-POT CLAV 875-125MG 1 EACH TAB PO SCH (08:18)
--- NOTE | 2018-03-10 12:14 | P.DS ---
Providers Date of admission: 03/08/18 07:05 Attending physician: Michele Lyons Consults: 03/08/18 06:57 Consult Physician Stat Consulting Provider: Radha Mcelroy Consult Reason/Comments: Seizure episode Do you want consulting provider notified?: Yes Primary care physician: Stated None Hospital Course: Patient came in with altered mental status secondary to accident low-dose on opiates mental status improved patient had question of seizure any elevating EKG. I discontinued her hydrochlorothiazide thiazide but patient ended up receiving it unfortunately because of hyponatremia I'm discontinued and it started continue IV fluids repeat basic metabolic profile tomorrow and if eeg is negative patient will be discharged back to subacute rehab without any antiseizure medications. 03/10/2018 Sodium remains low and she received hydrocodone thiazide yesterday. Is expected to improve with disc herniation of this medication patient will be discharged after the EEG. If EEG is positive patient will require antiseizure medications if negative patient will be discharged to subacute rehabilitation today without any antiseizure seizure medications patient will be discharged on Augmentin twice a day for 5 more days for aspiration pneumonia. Patient is much better today PHYSICAL EXAMINATION: GENERAL: The patient is alert nonverbal very pleasant HEENT: Pupils are round and equally reacting to light. EOMI. No scleral icterus. No conjunctival pallor. Normocephalic, atraumatic. No pharyngeal erythema. No thyromegaly. CARDIOVASCULAR: S1 and S2 present. No murmurs, rubs, or gallops. PULMONARY: Chest is clear to auscultation, no wheezing or crackles. ABDOMEN: Soft, nontender, nondistended, normoactive bowel sounds. No palpable organomegaly. MUSCULOSKELETAL: No joint swelling or deformity. EXTREMITIES: No cyanosis, clubbing, or pedal edema. NEUROLOGICAL: Gross neurological examination did not reveal any focal deficits. SKIN: No rashes. Assessment and Plan Plan: -Accidental overdose on multiple medications: Patient is clinically doing well will not need any further workup patient is awake at her baseline. -Possible seizure: Neurology evaluated the patient EEG today, treatment depending on EEG. -Hypothyroidism continue with levothyroxine -Possible aspiration secondary to her altered mental status from accidental overdose patient will be started on Augmentin -Hyponatremia: Hypovolemic hyponatremia secondary to hydrochlorothiazide expected to improve as this is being discontinued. Patient was started on amlodipine and stated -Toxic encephalopathy: Secondary to overdose on medications as mentioned above Patient Condition at Discharge: Good Plan - Discharge Summary New Discharge Prescriptions: New amLODIPine [Norvasc] 5 mg PO DAILY #30 tab Amoxicillin/Potassium Clav [Augmentin 500-125 Tablet] 1 tab PO Q12HR #14 tab Discontinued Hydrochlorothiazide [Hydrodiuril] 25 mg PO DAILY No Action Ciclopirox Olamine Cream [Ciclodan] 1 applic TOPICAL BID Multivitamins, Thera [Multivitamin (formulary)] 1 tab PO DAILY Levothyroxine Sodium [Synthroid] 137 mcg PO DAILY Acetaminophen Tab [Tylenol Tab] 325 mg PO Q6H PRN PRN Reason: Pain Cholecalciferol (Vitamin D3) [Vitamin D3] 2,000 unit PO DAILY Discharge Medication List Acetaminophen Tab [Tylenol Tab] 325 mg PO Q6H PRN 03/08/18 [History] Cholecalciferol (Vitamin D3) [Vitamin D3] 2,000 unit PO DAILY 03/08/18 [History] Ciclopirox Olamine Cream [Ciclodan] 1 applic TOPICAL BID 03/08/18 [History] Levothyroxine Sodium [Synthroid] 137 mcg PO DAILY 03/08/18 [History] Multivitamins, Thera [Multivitamin (formulary)] 1 tab PO DAILY 03/08/18 [History ] Amoxicillin/Potassium Clav [Augmentin 500-125 Tablet] 1 tab PO Q12HR #14 tab [Rx] amLODIPine [Norvasc] 5 mg PO DAILY #30 tab 03/09/18 [Rx] Follow up Appointment(s)/Referral(s): None,Stated [Primary Care Provider] - 3 Days Discharge Disposition: TRANSFER TO SNF/ECF
[2018-03-10 15:26] VITALS: BP 123/64; PULSE 73; TEMP 98.4
--- NOTE | 2018-03-10 16:53 | EEG ---
ELECTROENCEPHALOGRAM REPORT DATE OF EE03/10/2018. REFERRING PHYSICIAN: Dr. Lyons. CONSULTING INTERPRETING PHYSICIAN: Dr. Cal Mcelroy ELECTROENCEPHALOGRAPHIC EXAMINATION REPORT: INDICATION FOR EXAMINATION: This patient is a 62-year-old female with history of Down syndrome. The patient admitted to hospital with drug overdose and 15 second episode of seizure activity. AGE: 62. EEG FINDINGS: A routine 21 channel awake digital EEG recording was accomplished utilizing the 10-20 international system with bipolar and referential montages. The background activity in the most alert resting state consists of a low to medium amplitude, poorly developed and poorly sustained 5-6 Hz activity over the posterior head regions. This posterior rhythm attenuates to eye opening. There is a moderate amount of low amplitude 18-20 Hz beta activity seen maximally over the anterior head regions. Muscle and movement artifact was observed on several occasions throughout the tracing. No activation procedures were performed. No epileptiform discharges were seen. IMPRESSION: This EEG is moderately abnormal in a diffuse fashion due to slowing of the EEG background. The EEG failed to reveal any focal, lateralized, or epileptiform abnormalities. Clinical correlation is recommended. MMODL / IJN: [id number] /
--- NOTE | 2018-03-10 17:21 | P.PN ---
Subjective Progress Note Date: 03/10/18 This patient is a 62-year-old right-handed white female with a known history of Down syndrome. She was admitted yesterday to the emergency room with accidental drug overdose. She has slowly shown significant improvement since yesterday. Her computed tomography scan of the brain failed to reveal any acute changes. She did have a very short seizure like event in the ER that lasted 15 seconds. We have recommended routine EEG to be done for her and if this is normal she may be considered for discharge back to her nursing home. Her EEG will be done for further evaluation to rule out seizure disorder. We will follow-up with this and hopefully she'll be able to return to her nursing home today for further management. She does appear to be much more awake and alert and her usual self as per the nursing staff. Sister was in earlier this morning and apparently told nursing staff she is at her baseline level of function. She has had no further spells to suggest seizure activity since admission to hospital. Patient was able to complete routine EEG today and this was reviewed. Her EEG is moderately slow with no evidence of any epileptiform discharges. Reviewed the results with the nursing staff this afternoon and she is being cleared for return back to the nursing home later today. We will continue close neurological follow-up for the patient during this admission. Objective - Vital Signs Vital signs: Vital Signs Temp 98.9 F 03/10/18 06:21 Pulse 63 03/10/18 06:21 Resp 16 03/10/18 06:21 BP 188/91 03/10/18 06:21 Pulse Ox 97 03/10/18 06:21 Intake & Output 03/09/18 03/10/18 03/10/18 18:59 06:59 18:59 Intake Total 1800 Balance 1800 Intake: Oral 1800 Other: Voiding Method Toilet Toilet # Voids 1 3 2 # Bowel Movements 0 0 1 - Exam Physical examination: PHYSICAL EXAMINATION: Patient is resting comfortably in bed. VITAL SIGNS: Blood pressure is [123/64]. Heart rate is [73]. Respiration is [16] . Temperature is [98.4]. HEENT: Head is atraumatic, neck is supple, there were no carotid bruits. CHEST: Lungs are clear to auscultation and percussion. CARDIAC: S1, S2 normal rate and rhythm. There is no murmur. ABDOMEN: Soft and nontender. Bowel sounds are present. EXTREMITIES: There is no pedal edema. Peripheral pulses are present. Neurological examination: Her neurological examination is nonfocal today. She does have history of Down syndrome and has mild mental impairment but is at baseline level of function. Patient appears to be near baseline level of function and is showing no further spells of seizure activity. - Labs CBC & Chem 7: 03/09/18 08:14 03/10/18 07:22 Labs: Abnormal Lab Results - Last 24 Hours (Table) 03/10/18 Range/Units 07:22 Sodium 131 L (137-145) mmol/L Chloride 96 L (98-107) mmol/L Creatinine 0.51 L (0.52-1.04) mg/dL Glucose 106 H (74-99) mg/dL Microbiology - Last 24 Hours (Table) 03/08/18 07:03 Blood Culture - Preliminary Blood No Growth after 48 hours 03/08/18 06:55 Urine Culture - Final Urine,Catheterized Assessment and Plan (1) History of Down syndrome Status: Acute Code(s): Q90.9 - DOWN SYNDROME, UNSPECIFIED SNOMED Code(s): 781465104 (2) Drug overdose Status: Acute Code(s): T50.901A - POISONING BY UNSP DRUG/MEDS/BIOL SUBST, ACCIDENTAL, INIT SNOMED Code(s): 36613802 (3) Acute metabolic encephalopathy Status: Acute Code(s): G93.41 - METABOLIC ENCEPHALOPATHY SNOMED Code(s): 96539169 (4) New onset seizure Status: Acute Code(s): R56.9 - UNSPECIFIED CONVULSIONS SNOMED Code(s): 64333515 (5) Pneumonia Status: Acute Code(s): J18.9 - PNEUMONIA, UNSPECIFIED ORGANISM SNOMED Code(s ): 557664363 Plan: This patient is a 62-year-old female who was admitted to hospital yesterday with accidental drug overdose. She has a history of Down syndrome and resides at a nursing home. She underwent a computed tomography scan of the brain yesterday which was reviewed. She was subsequent admitted to hospital for close monitoring. She had a 15 second seizure in the emergency room which is felt to be likely secondary to the drug overdose. She has had no further seizure activity since admission to hospital. She is scheduled to undergo EEG today and if this is negative for any epileptiform discharges she'll be considered for discharge back to the nursing home. She seems to be doing much better today and is her normal level of baseline given her history of Down syndrome. We did review her EEG which was completed this afternoon. Her EEG reveals diffuse slowing with no evidence of any epileptiform discharges. We reviewed the results today with the nursing staff and this was conveyed to the admitting physician who is planning to discharge her back to the nursing home later today. We've instructed the nursing staff to inform her sister of the EEG results. Once again her EEG fails to reveal any active seizure focus. She does have Down syndrome and appears to be near baseline level of function. It is felt her recent seizure episode was secondary to drug overdose and toxicity. She may follow-up with her primary care physician as needed. Her overall prognosis at this time remains guarded.
== END 2018-03-10 16:46 | disposition home or self-care (01) | DRG 917 ==
LOC: EC 04:30 → 6SEL 07:05 → 4MS4W 19:45
PROVIDERS: ADMIT Hospitalist; ATTEND Hospitalist
DX: T50.901A Poisoning by unspecified drugs, medicaments and biological substances, accidental (unintentional), initial encounter (principal); G92 Toxic encephalopathy; J69.0 Pneumonitis due to inhalation of food and vomit; E87.1 Hypo-osmolality and hyponatremia; Y92.009 Unspecified place in unspecified non-institutional (private) residence as the place of occurrence of the external cause; E03.9 Hypothyroidism, unspecified; Q90.9 Down syndrome, unspecified; T50.2X5A Adverse effect of carbonic-anhydrase inhibitors, benzothiadiazides and other diuretics, initial encounter; R56.9 Unspecified convulsions; Z79.899 Other long term (current) drug therapy; Z79.890 Hormone replacement therapy; Z79.891 Long term (current) use of opiate analgesic
CPT/HCPCS: 36415; 36600; 51702; 70450; 71045; 71046; 80048; 80053; 82550; 82553; 83735; 84484; 85025; 85027; 85610; 85730; 87040; 87086; 93005; 94760; 95816; 96361; 96365; 96366; 96374; 96375; 99291